=== PATIENT | female | born 1990 | race Hispanic/Latino ===

== ENCOUNTER 2019-07-22 13:04 | Emergency (ER) | payer OTHER ==
[2019-07-22 13:25] VITALS: BP 103/61
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
== END 2019-07-22 15:28 | disposition home or self-care (01) ==
LOC: ED 13:04
DX: S80.811A Abrasion, right lower leg, initial encounter (principal); M79.645 Pain in left finger(s); E11.9 Type 2 diabetes mellitus without complications; F17.200 Nicotine dependence, unspecified, uncomplicated; V49.49XA Driver injured in collision with other motor vehicles in traffic accident, initial encounter; Y93.89 Activity, other specified; Y92.488 Other paved roadways as the place of occurrence of the external cause; Y99.8 Other external cause status
CPT/HCPCS: 99283